=== PATIENT | female | born 1930 | race Caucasian/White ===

== ENCOUNTER 2019-04-15 11:04 | Inpatient (IN) | payer MEDICARE ==
[~2019-04-15] VITALS: Ht 149.9 cm; Wt 68.0 kg
[2019-04-15] MEDS ORDERED: IPRATROPIUM/ALBUTEROL SULFATE 3 ML SOLUTION IH ONE ×2 (11:40→18:09)
[2019-04-15] MEDS ORDERED: METHYLPREDNISOLONE SOD SUCC 40MG/ML 1ML ONE (11:42)
[2019-04-15 11:50] LABS: BASOPHILS % (AUTO) 0.3 % (0.0-5.0); EOSINOPHILS % (AUTO) 1.3 % (0.0-8.0); HEMATOCRIT 41.8 % (36-48); LYMPHOCYTES % (AUTO) 10.6 % (21.0-51.0); MEAN CORPUSCULAR HEMOGLOBIN 33.5 pg (27.0-33.0); MEAN CORPUSCULAR HGB CONC 33.6 g/dL (32.0-36.0); MEAN CORPUSCULAR VOLUME 99.6 fL (79-99); MONOCYTES % (AUTO) 7.6 % (3.0-13.0); NEUTROPHILS % (AUTO) 80.2 % (40.0-77.0); PLATELET COUNT (AUTO) 252 K/uL (130-400); WHITE BLOOD COUNT (AUTO) 10.2 K/uL (4.8-10.8)
[2019-04-15 12:01] LABS: CREATININE 0.6 mg/dL (0.5-1.5); INR 1.01 (0.85-1.15); PARTIAL THROMBOPLASTIN TIME 33.6 SEC (26.3-35.5); POTASSIUM 3.9 mmol/L (3.5-5.1); PROTHROMBIN TIME 10.6 SEC (9.6-11.6)
[2019-04-15 12:06] LABS: ALBUMIN 3.5 g/dL (3.5-5.0); BILIRUBIN,TOTAL 0.4 mg/dL (0.2-1.0); TOTAL PROTEIN, SERUM 7.9 g/dL (6.0-8.3)
[2019-04-15 12:16] LABS: B-TYPE NATRIURETIC PEPTIDE 115 pg/mL (0-100)
[2019-04-15] MEDS ORDERED: LEVOFLOXACIN 500 MG/D5W 100 ML 100 ML ONE (12:20)
[2019-04-15] MEDS ORDERED: CLINDAMYCIN 600 MG/D5% WATER 50 ML IV ONE (12:47)
[2019-04-15] MEDS: IPRATROPIUM/ALBUTEROL SULFATE 3 ML SOLUTION IH SCH (18:13)
[2019-04-15] MEDS: BUDESONIDE 0.5 MG/2 ML INH IH SCH (18:14)
[2019-04-15 19:05] VITALS: BP 181/101
[2019-04-15] MEDS ORDERED: SODIUM CHLORIDE 0.9% 250 ML IV ONE (20:18)
[2019-04-15] MEDS: CLINDAMYCIN 600 MG/D5% WATER 50 ML IV SCH (21:17)
[2019-04-16] VITALS: BP 175/94
[2019-04-16] MEDS ORDERED: PARO10TA71 PO ×2 (00:44)
[2019-04-16] MEDS ORDERED: GLUC100019 PO (00:44)
[2019-04-16] MEDS ORDERED: AEC81 PO (00:44)
[2019-04-16] MEDS ORDERED: METO50TA18 PO (00:44)
[2019-04-16] MEDS ORDERED: LISI10TA7 PO ×2 (00:44)
[2019-04-16] MEDS ORDERED: DIPH25 PO (00:44)
[2019-04-16] MEDS ORDERED: OMEG-108 PO (00:44)
[2019-04-16] MEDS ORDERED: AMLO5TAB9 PO (00:44)
[2019-04-16] MEDS ORDERED: OMEP-50 PO (00:44)
[2019-04-16] MEDS ORDERED: METOPROLOL TARTRATE 50 MG TAB ONE (01:03)
[2019-04-16] MEDS ORDERED: LISINOPRIL 10 MG TABLET ONE (01:03)
[2019-04-16] MEDS ORDERED: FLU VACC QS2019-20 36MOS UP/PF 60 MCG/0.5 ML ML IM ONE ×2 (01:45→13:18)
[2019-04-16 04:00] VITALS: BP 161/99
[2019-04-16] MEDS: CLINDAMYCIN 600 MG/D5% WATER 50 ML IV SCH ×3 (04:40→20:51)
[2019-04-16] MEDS: IPRATROPIUM/ALBUTEROL SULFATE 3 ML SOLUTION IH SCH ×3 (06:23→21:31)
[2019-04-16] MEDS: BUDESONIDE 0.5 MG/2 ML INH IH SCH (06:24)
[2019-04-16 08:00] VITALS: BP 157/74
[2019-04-16] MEDS: METOPROLOL TARTRATE 50 MG TAB PO SCH ×2 (09:27→20:51)
[2019-04-16] MEDS ORDERED: LEVO500T89 PO (09:32)
[2019-04-16] MEDS ORDERED: CETI10TA57 PO (09:32)
[2019-04-16 12:00] VITALS: BP 174/105
[2019-04-16] MEDS ORDERED: LISINOPRIL 20 MG TABLET PO SCH (12:30)
[2019-04-16] MEDS ORDERED: AMLODIPINE BESYLATE 5 MG TAB PO SCH (13:00)
--- NOTE | 2019-04-16 13:00 | NUR ---
BORIS MET W PT & SPOUSE- SOUSE ALERT BUT VERY WEAK, SPOUSE SPOKE FOR HER LIVES W SPOUSE MALI WHO WILL PROVIDE TRANSPORT HOME; HAS O2, NEB, SC, RW, ALL DME NEEDED; HOME IS SAFE AND ACCESSIBLE, NO HH OR PROVIDER SERVICES, SEES DR. GRAJEDA- BUT WILL FOLLOW UP WITH MD THAT TOOK OVER PRACTICE. CM TO FOLLOW Addendum: 04/19/19 at 2037 by NGHIA AQUINO RN CM Amended: Links added.
[2019-04-16] MEDS: GUAIFENESIN-CODEINE 5 ML SYRUP PO PRN ×2 (13:27→20:52)
[2019-04-16 16:00] VITALS: BP 164/97
[2019-04-16 19:20] VITALS: BP 156/86
[2019-04-16] MEDS: LISINOPRIL 10 MG TABLET PO SCH (20:51)
[2019-04-17 00:25] VITALS: BP 180/109
[2019-04-17] MEDS ORDERED: SODIUM CHLORIDE 0.9% 250 ML IV ONE (01:59)
--- NOTE | 2019-04-17 02:10 | NUR ---
Patient resting in bed with HOB elevated with O2@2l/nc. Patient appears increasingly restless, reports feeling short of breath and dizzy with severe low back pain /. Patient was assisted up to chair as requested to help relieve the back pain. She coughed up a small amount of very thick, sticky phlegm. B/P 137/72, P 84, T 97.4. Called Dr. Valles and new orders were given. Will continue to monitor.
[2019-04-17] MEDS ORDERED: IPRATROPIUM/ALBUTEROL SULFATE 3 ML SOLUTION IH PRN (02:30)
[2019-04-17] MEDS ORDERED: TRAMADOL HCL 50 MG TABLET ONE (02:34)
[2019-04-17] MEDS ORDERED: SODIUM CHLORIDE 3% FOR INHALATION 4 ML/AMP VIAL.NEB IH ONE (03:17)
[2019-04-17] MEDS: IPRATROPIUM/ALBUTEROL SULFATE 3 ML SOLUTION IH SCH ×3 (03:20→21:28)
[2019-04-17 04:25] VITALS: BP 147/84
[2019-04-17] MEDS: CLINDAMYCIN 600 MG/D5% WATER 50 ML IV SCH ×3 (04:59→21:09)
[2019-04-17 05:51] LABS: HEMATOCRIT 41.8 % (36-48); MEAN CORPUSCULAR HEMOGLOBIN 33.6 pg (27.0-33.0); MEAN CORPUSCULAR HGB CONC 33.6 g/dL (32.0-36.0); PLATELET COUNT (AUTO) 256 K/uL (130-400); RED BLOOD CELL COUNT(AUTO) 4.18 MIL/uL (4.00-5.50); RED CELL DISTRIBUTION WIDTH 13.7 % (11.0-15.5); WHITE BLOOD COUNT (AUTO) 13.3 K/uL (4.8-10.8)
[2019-04-17 06:02] LABS: CREATININE 0.4 mg/dL (0.5-1.5); POTASSIUM 3.9 mmol/L (3.5-5.1)
[2019-04-17] MEDS: BUDESONIDE 0.5 MG/2 ML INH IH SCH ×2 (06:34→21:50)
[2019-04-17 08:00] VITALS: BP 146/85
[2019-04-17] MEDS: METOPROLOL TARTRATE 50 MG TAB PO SCH ×2 (08:47→21:09)
[2019-04-17] MEDS: AMLODIPINE BESYLATE 5 MG TAB PO SCH (08:47)
[2019-04-17] MEDS: LISINOPRIL 10 MG TABLET PO SCH ×2 (08:47→21:09)
[2019-04-17] MEDS: GUAIFENESIN-CODEINE 5 ML SYRUP PO PRN (08:59)
[2019-04-17 12:00] VITALS: BP 167/93
--- NOTE | 2019-04-17 14:22 | NUR ---
1404 had pt sign IM Letter.Faxed IM Letter to [phone] and placed in chart under consent tab.
[2019-04-17] MEDS ORDERED: ACETAMINOPHEN 325 MG TAB PO PRN (15:15)
[2019-04-17 16:00] VITALS: BP 122/65
[2019-04-17 19:10] VITALS: BP 155/84
[2019-04-17] MEDS: GLUCOSAMINE-CHONDROITIN PO SCH (21:09)
[2019-04-17] MEDS: DIPHENHYDRAMINE HCL 25 MG CAPSULE PO SCH (21:09)
[2019-04-17] MEDS: PAROXETINE HCL 20 MG TABLET PO SCH (21:10)
[2019-04-18] VITALS (7 sets, daily range): BP systolic 129–187; BP diastolic 77–90
--- NOTE | 2019-04-18 03:30 | NUR ---
paged Dr. Valles about patient's hypertention of 187/95. He ordered Clonidine 0.1 prn for systolic blood pressure above 160.
[2019-04-18] MEDS ORDERED: CLONIDINE HCL 0.1 MG TABLET PO PRN (04:30)
[2019-04-18] MEDS ORDERED: CLONIDINE HCL 0.1 MG TABLET ONE (04:34)
[2019-04-18] MEDS: CLINDAMYCIN 600 MG/D5% WATER 50 ML IV SCH ×3 (04:40→21:34)
[2019-04-18] MEDS: AMLODIPINE BESYLATE 5 MG TAB PO SCH ×3 (05:56→21:33)
[2019-04-18] MEDS: LISINOPRIL 10 MG TABLET PO SCH ×2 (05:56→21:33)
[2019-04-18] MEDS: METOPROLOL TARTRATE 50 MG TAB PO SCH ×2 (05:57→21:33)
[2019-04-18] MEDS: BUDESONIDE 0.5 MG/2 ML INH IH SCH ×3 (06:37→21:54)
[2019-04-18] MEDS: IPRATROPIUM/ALBUTEROL SULFATE 3 ML SOLUTION IH SCH ×3 (06:37→21:51)
[2019-04-18] MEDS: FISH OIL 1000 MG/CAP PO SCH (09:39)
[2019-04-18] MEDS: GLUCOSAMINE-CHONDROITIN PO SCH ×2 (09:39→21:33)
[2019-04-18] MEDS: PAROXETINE HCL 20 MG TABLET PO SCH ×2 (09:40→21:33)
[2019-04-18] MEDS: ASPIRIN 81 MG EC TAB PO SCH (09:40)
[2019-04-18] MEDS: CETIRIZINE HCL 5 MG TABLET PO SCH (09:40)
[2019-04-18] MEDS: PANTOPRAZOLE SODIUM 40 MG TABLET.DR PO SCH (09:47)
--- NOTE | 2019-04-18 10:30 | NUR ---
MBSS COMPLETED. SHALLOW TRANSIENT PENETRATION WITH MIXED. RECOMMEND REGULAR TEXTURE, THIN LIQUIDS; PILLS WHOLE WITH LIQUIDS. Addendum: 04/18/19 at 1755 by ERIKA VICTORIA, [facility] Amended: Links added.
[2019-04-18] MEDS: LEVOFLOXACIN 500 MG/D5W 100 ML 100 ML IV SCH (15:06)
[2019-04-18] MEDS: LACTULOSE 20 GM/30 ML UDCUP PO PRN ×2 (17:42→21:32)
[2019-04-18] MEDS: DIPHENHYDRAMINE HCL 25 MG CAPSULE PO SCH (21:33)
[2019-04-19 00:12] VITALS: BP 143/89
[2019-04-19] MEDS: TRAMADOL HCL 50 MG TABLET PO PRN ×2 (04:10→11:27)
[2019-04-19] MEDS: CLINDAMYCIN 600 MG/D5% WATER 50 ML IV SCH ×3 (04:10→19:47)
[2019-04-19 04:12] VITALS: BP 145/86
[2019-04-19] MEDS: PANTOPRAZOLE SODIUM 40 MG TABLET.DR PO SCH (06:35)
[2019-04-19] MEDS: BUDESONIDE 0.5 MG/2 ML INH IH SCH ×2 (06:41→21:17)
[2019-04-19] MEDS: IPRATROPIUM/ALBUTEROL SULFATE 3 ML SOLUTION IH SCH ×3 (06:41→21:16)
[2019-04-19 07:00] VITALS: BP 154/92
[2019-04-19] MEDS: ASPIRIN 81 MG EC TAB PO SCH (08:53)
[2019-04-19] MEDS: FISH OIL 1000 MG/CAP PO SCH (08:54)
[2019-04-19] MEDS: GLUCOSAMINE-CHONDROITIN PO SCH ×2 (08:55→19:47)
[2019-04-19] MEDS: METOPROLOL TARTRATE 50 MG TAB PO SCH ×2 (08:55→19:47)
[2019-04-19] MEDS: LISINOPRIL 10 MG TABLET PO SCH ×2 (08:56→19:47)
[2019-04-19] MEDS: CETIRIZINE HCL 5 MG TABLET PO SCH (08:57)
[2019-04-19] MEDS: PAROXETINE HCL 20 MG TABLET PO SCH ×2 (08:58→19:47)
[2019-04-19] MEDS: AMLODIPINE BESYLATE 5 MG TAB PO SCH ×2 (08:58→19:46)
[2019-04-19] MEDS: ENOXAPARIN SODIUM 30 MG/0.3 ML SQ SCH (09:00)
[2019-04-19 11:00] VITALS: BP 116/71
[2019-04-19] MEDS: LEVOFLOXACIN 500 MG/D5W 100 ML 100 ML IV SCH (14:50)
--- NOTE | 2019-04-19 15:05 | NUR ---
PT NOTE: PATIENT AMBULATED 10FT THIS AM /C MOD/MIN ASSISTX2. PATIENT REQUIRES X2 PERSON ASSIST FOR SAFE AMBULATION SECONDARY TO LE WEAKNESS AND UNSTEADY GAIT. PATIENT WILL BENEFIT FROM SNF PLACEMENT TO PROMOTE IMPROVED GAIT QUALITY AND STRENGTH PRIOR TO D/C HOME. Addendum: 04/19/19 at 1512 by SAWYER GU PT Amended: Links added.
[2019-04-19 16:00] VITALS: BP 140/74
--- NOTE | 2019-04-19 16:30 | NUR ---
DR PENA AT BEDSIDE FOR DC PLANNING DISCUSSED JEREMIE PETERS, ORDERS RECD, CALL TO EDUAR, RAQUEL SIGNED, REP SCANNED ORDER AND FACE SHEET
[2019-04-19] MEDS: DIPHENHYDRAMINE HCL 25 MG CAPSULE PO SCH (19:47)
[2019-04-19 20:00] VITALS: BP 119/82
[2019-04-20] VITALS: BP 148/88
[2019-04-20 04:00] VITALS: BP 152/87
[2019-04-20] MEDS: CLINDAMYCIN 600 MG/D5% WATER 50 ML IV SCH ×2 (05:06→12:55)
[2019-04-20] MEDS: PANTOPRAZOLE SODIUM 40 MG TABLET.DR PO SCH (06:16)
[2019-04-20] MEDS: IPRATROPIUM/ALBUTEROL SULFATE 3 ML SOLUTION IH SCH ×2 (06:38→14:11)
[2019-04-20] MEDS: BUDESONIDE 0.5 MG/2 ML INH IH SCH (06:38)
[2019-04-20 08:00] VITALS: BP 189/86
[2019-04-20] MEDS ORDERED: FLUCONAZOLE 100 MG TAB PO SCH (09:00)
[2019-04-20] MEDS: FISH OIL 1000 MG/CAP PO SCH (09:18)
[2019-04-20] MEDS: ASPIRIN 81 MG EC TAB PO SCH (09:18)
[2019-04-20] MEDS: METOPROLOL TARTRATE 50 MG TAB PO SCH (09:18)
[2019-04-20] MEDS: ENOXAPARIN SODIUM 30 MG/0.3 ML SQ SCH (09:18)
[2019-04-20] MEDS: GLUCOSAMINE-CHONDROITIN PO SCH (09:20)
[2019-04-20] MEDS: CETIRIZINE HCL 5 MG TABLET PO SCH (09:20)
[2019-04-20] MEDS: LISINOPRIL 10 MG TABLET PO SCH (09:20)
[2019-04-20] MEDS: AMLODIPINE BESYLATE 5 MG TAB PO SCH (09:20)
[2019-04-20] MEDS: PAROXETINE HCL 20 MG TABLET PO SCH (09:21)
[2019-04-20 12:00] VITALS: BP 103/62
--- NOTE | 2019-04-20 12:10 | NUR ---
Nutrition intervention: Nutrition consult for LOS x5. Pt admitted for pneumonia, currently on regular diet with poor po intake. At time of RD visit pt had not eaten lunch. at bedside reported that he would eat whatever the patient did not eat. Pt baseline intake is low. Recommendations: Continue current diet therapy. Feeding assistance to help her set up her meals. Recommend nutrition supplementation TID for added caloric and protein intake. Please consult RD as nutrition concerns arise. Addendum: 04/20/19 at [address] Amended: Links added.
--- NOTE | 2019-04-20 12:11 | NUR ---
FOLLOW-UP COMPLETED. Pt TOLERATING CURRENT DIET OF REGULAR TEXTURE, THIN LIQUIDS; PILLS WHOLE WITH LIQUIDS. Pt TOLERATING CURRENT DIET AT THIS TIME. SKILLED SPEECH THERAPY IS NOT WARRANTED AT THIS TIME. RECOMMEND CONTINUED P.O. Addendum: 04/20/19 at 1212 by ERIKA VICTORIA, [facility] Amended: Links added.
[2019-04-20] MEDS: LEVOFLOXACIN 500 MG/D5W 100 ML 100 ML IV SCH (12:56)
[2019-04-20 16:00] VITALS: BP 127/76
--- NOTE | 2019-04-20 16:30 | NUR ---
ACCEPTED AT [facility] RN AWARE, CHARGE AWARE, PT AWARE. RN TO PREPARE PAPERWORK
--- NOTE | 2019-04-20 18:23 | NUR ---
DISCHARGE NOTE REPORT GIVEN TO AGNES ISAACS AT [facility]. MADE AWARE PATIENT WILL BE TRANSFERRED WITH 20g IV TO RIGHT AC AND 22G IV TO LEFT WRIST. PATIENT AND SPOUSE GIVEN DISCHARGE INSTRUCTIONS AND AGREE WITH TRANSFER TO [facility]. ALL QUESTIONS ANSWERED. PATIENT AT THIS TIME DENIES ANY SHORTNESS OF BREATH, SATURATING 93-95% WITH O2 3LPM VIA NC.
[2019-04-20] MEDS: TRAMADOL HCL 50 MG TABLET PO PRN (19:04)
== END 2019-04-20 19:35 | DRG 193 ==
LOC: EDH 11:04 → OBSVTOIN 15:37 → EDHIP 15:37 → 3CH 19:08
PROVIDERS: ADMIT Internal Medicine; ATTEND Internal Medicine
DX: J18.1 Lobar pneumonia, unspecified organism (principal); J96.91 Respiratory failure, unspecified with hypoxia; J44.1 Chronic obstructive pulmonary disease with (acute) exacerbation; J44.0 Chronic obstructive pulmonary disease with (acute) lower respiratory infection; E87.3 Alkalosis; I10 Essential (primary) hypertension; K21.9 Gastro-esophageal reflux disease without esophagitis; F32.9 Major depressive disorder, single episode, unspecified; Z88.0 Allergy status to penicillin; Z88.2 Allergy status to sulfonamides; Z88.8 Allergy status to other drugs, medicaments and biological substances; Z71.89 Other specified counseling; Z99.81 Dependence on supplemental oxygen; Z90.710 Acquired absence of both cervix and uterus; Z87.11 Personal history of peptic ulcer disease; Z23 Encounter for immunization
CPT/HCPCS: 36415; 71045; 71250; 74230; 80048; 80053; 82550; 83605; 83880; 84484; 85025; 85027; 85610; 85730; 87040; 87071; 87205; 87804; 92611; 93005; 94640; 94664; 97039; G0378; J1650; J1956; J2920; J3490; J7030; Q0163; Q2035

== ENCOUNTER → 2019-09-08 | Outpatient (CLI) | payer MEDICARE ==
[~2019-09-08] MED LIST: AEC81 PO; AMLO5TAB9 PO; CETI10TA57 PO; DIPH25 PO; GLUC100019 PO; LEVO500T89 PO; LIDOCAINE HCL 4% LTA SOL 4 ML VIAL TP ONE; LISI10TA7 PO; METO50TA18 PO; OMEG-108 PO; OMEP20CA12 PO; PARO10TA71 PO
[2019-09-08 13:29] VITALS: BP 170/89
== END | disposition home or self-care (01) ==
LOC: WHH 10:54
PROVIDERS: ATTEND Family Medicine
DX: L97.312 Non-pressure chronic ulcer of right ankle with fat layer exposed (principal); I10 Essential (primary) hypertension; J44.9 Chronic obstructive pulmonary disease, unspecified; M81.0 Age-related osteoporosis without current pathological fracture; K21.9 Gastro-esophageal reflux disease without esophagitis; J18.1 Lobar pneumonia, unspecified organism; F32.9 Major depressive disorder, single episode, unspecified; Z99.81 Dependence on supplemental oxygen; Z88.0 Allergy status to penicillin; Z88.2 Allergy status to sulfonamides; Z90.710 Acquired absence of both cervix and uterus; Z88.8 Allergy status to other drugs, medicaments and biological substances; Z87.11 Personal history of peptic ulcer disease
CPT/HCPCS: 11042

== ENCOUNTER → 2019-09-15 | Outpatient (CLI) | payer MEDICARE ==
[~2019-09-15] MED LIST changes: +AMLO-257 PO; -AMLO5TAB9 PO; +LIDOCAINE HCL 2% JELLY 5 ML TP ONE; -LIDOCAINE HCL 4% LTA SOL 4 ML VIAL TP ONE
[2019-09-15 11:33] VITALS: BP 137/72
== END | disposition home or self-care (01) ==
LOC: WHH 10:07
PROVIDERS: ATTEND Family Medicine
DX: S91.001D Unspecified open wound, right ankle, subsequent encounter (principal); I10 Essential (primary) hypertension; J44.9 Chronic obstructive pulmonary disease, unspecified; M81.0 Age-related osteoporosis without current pathological fracture; K21.9 Gastro-esophageal reflux disease without esophagitis; F42.9 Obsessive-compulsive disorder, unspecified; Z99.81 Dependence on supplemental oxygen; Z88.0 Allergy status to penicillin; Z88.2 Allergy status to sulfonamides; Z88.8 Allergy status to other drugs, medicaments and biological substances; Z90.49 Acquired absence of other specified parts of digestive tract; Z87.11 Personal history of peptic ulcer disease; X58.XXXD Exposure to other specified factors, subsequent encounter
CPT/HCPCS: 11042

== ENCOUNTER → 2019-09-22 | Outpatient (CLI) | payer MEDICARE ==
[~2019-09-22] MED LIST changes: -AMLO-257 PO; +AMLO5TAB9 PO; -LIDOCAINE HCL 2% JELLY 5 ML TP ONE
[2019-09-22 13:02] VITALS: BP 165/93
== END | disposition home or self-care (01) ==
LOC: WHH 10:00
PROVIDERS: ATTEND Family Medicine
DX: L97.312 Non-pressure chronic ulcer of right ankle with fat layer exposed (principal); M81.0 Age-related osteoporosis without current pathological fracture; J44.9 Chronic obstructive pulmonary disease, unspecified; I10 Essential (primary) hypertension; K21.9 Gastro-esophageal reflux disease without esophagitis; F32.9 Major depressive disorder, single episode, unspecified; Z90.49 Acquired absence of other specified parts of digestive tract; Z88.8 Allergy status to other drugs, medicaments and biological substances; Z88.0 Allergy status to penicillin; Z88.2 Allergy status to sulfonamides; Z99.81 Dependence on supplemental oxygen; Z87.11 Personal history of peptic ulcer disease
CPT/HCPCS: 11042; A6021; A6197

== ENCOUNTER → 2019-09-29 | Outpatient (CLI) | payer MEDICARE ==
[2019-09-29 12:11] VITALS: BP 175/102
== END | disposition home or self-care (01) ==
LOC: WHH 10:30
PROVIDERS: ATTEND Family Medicine
DX: S91.001D Unspecified open wound, right ankle, subsequent encounter (principal); M81.0 Age-related osteoporosis without current pathological fracture; J44.9 Chronic obstructive pulmonary disease, unspecified; I10 Essential (primary) hypertension; K21.9 Gastro-esophageal reflux disease without esophagitis; F32.9 Major depressive disorder, single episode, unspecified; Z90.49 Acquired absence of other specified parts of digestive tract; Z88.8 Allergy status to other drugs, medicaments and biological substances; Z88.0 Allergy status to penicillin; Z88.2 Allergy status to sulfonamides; Z99.81 Dependence on supplemental oxygen; Z87.11 Personal history of peptic ulcer disease; Z90.710 Acquired absence of both cervix and uterus
CPT/HCPCS: 11042; A6021

== ENCOUNTER → 2019-10-06 | Outpatient (CLI) | payer MEDICARE ==
[2019-10-06 13:25] VITALS: BP 164/90
== END | disposition home or self-care (01) ==
LOC: WHH 10:10
PROVIDERS: ATTEND Family Medicine
DX: S91.001D Unspecified open wound, right ankle, subsequent encounter (principal); M81.0 Age-related osteoporosis without current pathological fracture; J44.9 Chronic obstructive pulmonary disease, unspecified; I10 Essential (primary) hypertension; K21.9 Gastro-esophageal reflux disease without esophagitis; F32.9 Major depressive disorder, single episode, unspecified; Z90.49 Acquired absence of other specified parts of digestive tract; Z88.8 Allergy status to other drugs, medicaments and biological substances; Z88.0 Allergy status to penicillin; Z88.2 Allergy status to sulfonamides; Z99.81 Dependence on supplemental oxygen; Z87.11 Personal history of peptic ulcer disease; Z90.710 Acquired absence of both cervix and uterus; X58.XXXD Exposure to other specified factors, subsequent encounter
CPT/HCPCS: 11042; A6021; A6196; A6456

== ENCOUNTER → 2019-10-13 | Outpatient (CLI) | payer MEDICARE ==
[2019-10-13 13:06] VITALS: BP 166/84
== END | disposition home or self-care (01) ==
LOC: WHH 10:00
PROVIDERS: ATTEND Family Medicine
DX: S91.001D Unspecified open wound, right ankle, subsequent encounter (principal); I10 Essential (primary) hypertension; J44.9 Chronic obstructive pulmonary disease, unspecified; M81.0 Age-related osteoporosis without current pathological fracture; K21.9 Gastro-esophageal reflux disease without esophagitis; F32.9 Major depressive disorder, single episode, unspecified; Z99.81 Dependence on supplemental oxygen; Z90.710 Acquired absence of both cervix and uterus; Z90.49 Acquired absence of other specified parts of digestive tract; Z88.8 Allergy status to other drugs, medicaments and biological substances; Z88.0 Allergy status to penicillin; Z88.2 Allergy status to sulfonamides; Z87.11 Personal history of peptic ulcer disease; X58.XXXD Exposure to other specified factors, subsequent encounter
CPT/HCPCS: 11042; A6021; A6196; A6456

== ENCOUNTER → 2019-10-20 | Outpatient (CLI) | payer MEDICARE ==
[~2019-10-20] MED LIST changes: +LIDOCAINE HCL 4% LTA SOL 4 ML VIAL TP ONE
[2019-10-20 12:28] VITALS: BP 157/95
== END | disposition home or self-care (01) ==
LOC: WHH 10:00
PROVIDERS: ATTEND Family Medicine
DX: S91.001D Unspecified open wound, right ankle, subsequent encounter (principal); I10 Essential (primary) hypertension; J44.9 Chronic obstructive pulmonary disease, unspecified; M81.0 Age-related osteoporosis without current pathological fracture; K21.9 Gastro-esophageal reflux disease without esophagitis; F32.9 Major depressive disorder, single episode, unspecified; Z99.81 Dependence on supplemental oxygen; Z90.710 Acquired absence of both cervix and uterus; Z90.49 Acquired absence of other specified parts of digestive tract; Z88.8 Allergy status to other drugs, medicaments and biological substances; Z88.0 Allergy status to penicillin; Z88.2 Allergy status to sulfonamides; Z87.11 Personal history of peptic ulcer disease; X58.XXXD Exposure to other specified factors, subsequent encounter
CPT/HCPCS: 11042; A6021; A6197; A6456

== ENCOUNTER → 2019-10-27 | Outpatient (CLI) | payer MEDICARE ==
[~2019-10-27] MED LIST changes: -LIDOCAINE HCL 4% LTA SOL 4 ML VIAL TP ONE
[2019-10-27 12:14] VITALS: BP 180/100
== END | disposition home or self-care (01) ==
LOC: WHH 10:30
PROVIDERS: ATTEND Family Medicine
DX: S81.001D Unspecified open wound, right knee, subsequent encounter (principal); I10 Essential (primary) hypertension; J44.9 Chronic obstructive pulmonary disease, unspecified; M81.0 Age-related osteoporosis without current pathological fracture; K21.9 Gastro-esophageal reflux disease without esophagitis; F32.9 Major depressive disorder, single episode, unspecified; Z99.81 Dependence on supplemental oxygen; Z90.710 Acquired absence of both cervix and uterus; Z90.49 Acquired absence of other specified parts of digestive tract; Z88.8 Allergy status to other drugs, medicaments and biological substances; Z88.0 Allergy status to penicillin; Z88.2 Allergy status to sulfonamides; Z87.11 Personal history of peptic ulcer disease; X58.XXXD Exposure to other specified factors, subsequent encounter
CPT/HCPCS: 11042; A6021; A6196; A6456

== ENCOUNTER → 2019-11-03 | Outpatient (CLI) | payer MEDICARE ==
[2019-11-03 15:19] VITALS: BP 160/81
== END | disposition home or self-care (01) ==
LOC: WHH 10:30
PROVIDERS: ATTEND Family Medicine
DX: S81.801D Unspecified open wound, right lower leg, subsequent encounter (principal); I10 Essential (primary) hypertension; J44.9 Chronic obstructive pulmonary disease, unspecified; M81.0 Age-related osteoporosis without current pathological fracture; K21.9 Gastro-esophageal reflux disease without esophagitis; F32.9 Major depressive disorder, single episode, unspecified; Z99.81 Dependence on supplemental oxygen; Z90.710 Acquired absence of both cervix and uterus; Z90.49 Acquired absence of other specified parts of digestive tract; Z88.8 Allergy status to other drugs, medicaments and biological substances; Z88.0 Allergy status to penicillin; Z88.2 Allergy status to sulfonamides; Z87.11 Personal history of peptic ulcer disease; X58.XXXD Exposure to other specified factors, subsequent encounter
CPT/HCPCS: 11042; A6021; A6197; A6456

== ENCOUNTER → 2019-11-10 | Outpatient (CLI) | payer MEDICARE ==
[~2019-11-10] MED LIST changes: +AMLO-257 PO; -AMLO5TAB9 PO; +LIDOCAINE HCL 4% LTA SOL 4 ML VIAL TP ONE
[2019-11-10 13:10] VITALS: BP 150/72
== END | disposition home or self-care (01) ==
LOC: WHH 10:30
PROVIDERS: ATTEND Family Medicine
DX: S91.001D Unspecified open wound, right ankle, subsequent encounter (principal); I10 Essential (primary) hypertension; M81.0 Age-related osteoporosis without current pathological fracture; K21.9 Gastro-esophageal reflux disease without esophagitis; J44.9 Chronic obstructive pulmonary disease, unspecified; F41.9 Anxiety disorder, unspecified; Z90.49 Acquired absence of other specified parts of digestive tract; Z90.710 Acquired absence of both cervix and uterus; Z88.8 Allergy status to other drugs, medicaments and biological substances; Z88.0 Allergy status to penicillin; Z88.2 Allergy status to sulfonamides; Z99.81 Dependence on supplemental oxygen; Z87.11 Personal history of peptic ulcer disease; X58.XXXD Exposure to other specified factors, subsequent encounter
CPT/HCPCS: 11042; A6197; A6209; A6456

== ENCOUNTER → 2019-11-17 | Outpatient (CLI) | payer MEDICARE ==
[2019-11-17 11:06] VITALS: BP 172/92
== END | disposition home or self-care (01) ==
LOC: WHH 10:30
PROVIDERS: ATTEND Family Medicine
DX: S91.001D Unspecified open wound, right ankle, subsequent encounter (principal); I10 Essential (primary) hypertension; M81.0 Age-related osteoporosis without current pathological fracture; J44.9 Chronic obstructive pulmonary disease, unspecified; K21.9 Gastro-esophageal reflux disease without esophagitis; F32.9 Major depressive disorder, single episode, unspecified; F41.9 Anxiety disorder, unspecified; Z99.81 Dependence on supplemental oxygen; Z90.49 Acquired absence of other specified parts of digestive tract; Z87.11 Personal history of peptic ulcer disease; Z90.710 Acquired absence of both cervix and uterus; Z88.0 Allergy status to penicillin; Z88.2 Allergy status to sulfonamides; X58.XXXD Exposure to other specified factors, subsequent encounter
CPT/HCPCS: 11042; A6197; A6209; A6456

== ENCOUNTER → 2019-12-01 | Outpatient (CLI) | payer MEDICARE ==
[~2019-12-01] MED LIST changes: -AMLO-257 PO; +AMLO5TAB9 PO; -LIDOCAINE HCL 4% LTA SOL 4 ML VIAL TP ONE
== END | disposition home or self-care (01) ==
LOC: WHH 10:30
PROVIDERS: ATTEND Family Medicine
DX: L97.812 Non-pressure chronic ulcer of other part of right lower leg with fat layer exposed (principal); I10 Essential (primary) hypertension; I87.2 Venous insufficiency (chronic) (peripheral); M81.0 Age-related osteoporosis without current pathological fracture; K21.9 Gastro-esophageal reflux disease without esophagitis; E78.5 Hyperlipidemia, unspecified; E78.2 Mixed hyperlipidemia; J44.9 Chronic obstructive pulmonary disease, unspecified; F41.9 Anxiety disorder, unspecified; F32.9 Major depressive disorder, single episode, unspecified; Z87.11 Personal history of peptic ulcer disease; Z88.8 Allergy status to other drugs, medicaments and biological substances; Z99.81 Dependence on supplemental oxygen; Z90.710 Acquired absence of both cervix and uterus; Z90.49 Acquired absence of other specified parts of digestive tract; Z88.0 Allergy status to penicillin; Z88.2 Allergy status to sulfonamides
CPT/HCPCS: 29580; A6196; A6456; G0463

== ENCOUNTER 2019-12-15 10:30 | Outpatient (CLI) | payer MEDICARE ==
[~2019-12-15 10:30] MED LIST changes: +AMLO-257 PO; -AMLO5TAB9 PO
== END 2019-12-15 12:50 | disposition home or self-care (01) ==
LOC: WHH 10:30
PROVIDERS: ATTEND Family Medicine
DX: L97.318 Non-pressure chronic ulcer of right ankle with other specified severity (principal); L97.812 Non-pressure chronic ulcer of other part of right lower leg with fat layer exposed; I10 Essential (primary) hypertension; I87.2 Venous insufficiency (chronic) (peripheral); M81.0 Age-related osteoporosis without current pathological fracture; J44.9 Chronic obstructive pulmonary disease, unspecified; K21.9 Gastro-esophageal reflux disease without esophagitis; E78.5 Hyperlipidemia, unspecified; E78.2 Mixed hyperlipidemia; F32.9 Major depressive disorder, single episode, unspecified; F41.9 Anxiety disorder, unspecified; Z87.11 Personal history of peptic ulcer disease; Z90.710 Acquired absence of both cervix and uterus; Z88.8 Allergy status to other drugs, medicaments and biological substances; Z88.0 Allergy status to penicillin; Z88.2 Allergy status to sulfonamides; Z90.49 Acquired absence of other specified parts of digestive tract
CPT/HCPCS: G0463